=== PATIENT | male | born 1950 | race Caucasian/White ===

== ENCOUNTER 2018-04-28 21:09 | Outpatient (REF) | payer OTHER, SELFPAY ==
[2018-04-28 22:22] LABS: ALT 66 U/L (12-78); AST 39 U/L (15-37); Albumin 4.3 g/dL (3.4-5.0); Alkaline Phosphatase 57 U/L (46-116); Anion Gap 8.4 mmol/L (3-11); BUN 9 mg/dL (7-18); Bilirubin, Total 0.7 mg/dL (0.2-1.0); CO2 27.6 mmol/L (21.0-32.0); Calcium 8.4 mg/dL (8.5-10.1); Chloride 102 mmol/L (98-107); Cholesterol 178 mg/dL (50-200); Glucose 98 mg/dL (70-100); HDL Cholesterol 81 mg/dL (40-60); LDL CHOLESTEROL 88 mg/dL (<100); Potassium 3.8 mmol/L (3.5-5.1); Sodium 138 mmol/L (136-145); Total Protein 7.5 g/dL (6.4-8.2); Triglyceride 56 mg/dL (30-150)
== END 2018-04-28 21:10 ==
LOC: NCHCN 21:09
PROVIDERS: PCP Family Medicine; Visit Provider Nurse Practitioner Family
DX: I49.9 Cardiac arrhythmia, unspecified (principal); I10 Essential (primary) hypertension; E78.5 Hyperlipidemia, unspecified
CPT/HCPCS: 80053; 80061; 83721

== ENCOUNTER 2018-05-11 18:32 | Outpatient (REF) | payer OTHER, SELFPAY ==
[2018-05-11 22:38] LABS: Anion Gap 5.7 mmol/L (3-11); BUN 14 mg/dL (7-18); CO2 29.3 mmol/L (21.0-32.0); CREATININE 0.77 mg/dL (0.70-1.30); Chloride 102 mmol/L (98-107); Glucose 101 mg/dL (70-100); Potassium 4.4 mmol/L (3.5-5.1); Sodium 137 mmol/L (136-145)
== END 2018-05-11 18:52 ==
LOC: NCHCN 18:32
PROVIDERS: PCP Family Medicine; Visit Provider Nurse Practitioner Family
DX: I10 Essential (primary) hypertension (principal)
CPT/HCPCS: 80048

== ENCOUNTER 2018-05-26 09:39 | Outpatient (REF) | payer OTHER, SELFPAY ==
[2018-05-26 21:31] LABS: HCT 40.8 % (40.0-50.0); HGB 13.5 g/dL (13.5-17.5); Mean Corp. HGB Concentration 33.1 g/dL (32.0-36.0); Mean Corpuscular Hemoglobin 33.8 pg (27.0-33.0); Mean Corpuscular Volume 102.3 fL (80-95); Mean Platelet Volume 10.2 fL (8.0-11.0); Platelet Count 225 x1000/uL (130-400); RBC 3.99 m/cumm (4.50-6.00); RBC Distribution Width 11.2 % (11.8-14.1); White Blood Cell Count 3.93 k/cumm (4.4-10.8)
[2018-05-26 21:39] LABS: Iron 188 ug/dL (50-175); Total Iron Binding Capacity 315 ug/dL (250-450); Transferrin Sat 60 % (20-55)
[2018-05-26 21:52] LABS: Ferritin 696 ng/mL (8-388)
[2018-05-26 23:29] LABS: Prothrombin Time 9.9 sec (9.3-10.8)
[2018-05-28 09:14] LABS: Hepatitis C Ab w Rflx HCV PCR Negative (NEGAT)
[2018-05-28 11:05] LABS: HBs Antibody, Quant <3.1 mIU/mL; Hepatitis B Surface Ab Negative; Hepatitis B Surface Ag Negative (NEGAT)
== END 2018-05-26 09:59 ==
LOC: NCHCN 09:39
PROVIDERS: PCP Family Medicine; Visit Provider Nurse Practitioner Family
DX: K76.89 Other specified diseases of liver (principal); R79.89 Other specified abnormal findings of blood chemistry
CPT/HCPCS: 85027; 86706; 86803; 87340; 82728; 83540; 83550; 85610

== ENCOUNTER 2019-03-07 17:04 | Outpatient (REF) | payer MEDICARE, BC, SELFPAY ==
[2019-03-07 21:48] LABS: TSH (W/Ref FT4) 3.59 uIU/mL (0.358-3.74)
== END 2019-03-07 17:24 ==
LOC: NCHCN 17:04
PROVIDERS: PCP Family Medicine; Visit Provider Family Medicine
DX: E01.0 Iodine-deficiency related diffuse (endemic) goiter (principal); R42 Dizziness and giddiness; Z80.8 Family history of malignant neoplasm of other organs or systems
CPT/HCPCS: 84443

== ENCOUNTER 2019-04-11 14:39 | Outpatient (REF) | payer MEDICARE, BC, SELFPAY ==
[2019-04-11 22:11] LABS: Folate 10.6 ng/mL (8.6-20.0); Vitamin B12 238 pg/mL (193-986)
== END 2019-04-11 14:59 ==
LOC: NCHCN 14:39
PROVIDERS: PCP Family Medicine; Visit Provider Family Medicine
DX: D53.9 Nutritional anemia, unspecified (principal); R79.89 Other specified abnormal findings of blood chemistry; R94.5 Abnormal results of liver function studies; J39.2 Other diseases of pharynx; E01.0 Iodine-deficiency related diffuse (endemic) goiter; M25.559 Pain in unspecified hip; Z80.8 Family history of malignant neoplasm of other organs or systems
CPT/HCPCS: 82607; 82746

== ENCOUNTER 2019-10-07 13:42 | Outpatient (REF) | payer MEDICARE, BC, SELFPAY ==
[2019-10-07 21:17] LABS: Abs Immature Grans 0.01 k/cumm (0.0-0.09); Absolute Basophil Count 0.03 k/cumm (0.0-0.2); Absolute Eosinophil Count 0.22 k/cumm (0.0-0.7); Absolute Lymphocyte Count 1.47 k/cumm (1.2-3.4); Absolute Monocyte Count 0.74 k/cumm (0.11-0.7); Absolute Neutrophil Count 5.07 k/cumm (1.2-6.7); Basophils % 0.4; Eosinophils % 2.9; HCT 41.1 % (40.0-50.0); HGB 13.8 g/dL (13.5-17.5); Immature Grans % 0.1 %; Lymphocytes % 19.5; Mean Corp. HGB Concentration 33.6 g/dL (32.0-36.0); Mean Corpuscular Hemoglobin 34.4 pg (27.0-33.0); Mean Corpuscular Volume 102.5 fL (80-95); Mean Platelet Volume 10.2 fL (8.0-11.0); Monocytes % 9.8; Neutrophils % 67.3; Platelet Count 222 x1000/uL (130-400); RBC 4.01 m/cumm (4.50-6.00); RBC Distribution Width 11.8 % (11.8-14.1); White Blood Cell Count 7.54 k/cumm (4.4-10.8)
[2019-10-07 21:35] LABS: ALT 54 U/L (16-63); AST 30 U/L (15-37); Anion Gap 7.4 mmol/L (3-11); BUN 15 mg/dL (7-18); CO2 30.6 mmol/L (21.0-32.0); CREATININE 1.19 mg/dL (0.70-1.30); Calcium 8.8 mg/dL (8.5-10.1); Chloride 104 mmol/L (98-107); FREE T4 1.01 ng/dL (0.76-1.46); Glucose 95 mg/dL (74-106); Potassium 3.9 mmol/L (3.5-5.1); Sodium 142 mmol/L (136-145); TSH 1.32 uIU/mL (0.36-3.74)
[2019-10-10 10:29] LABS: PSA, Screening <0.1 ng/mL (0.0-4.5)
[2019-10-10 11:05] LABS: Thyroperoxidase Antibody 29 U/mL (<=60)
== END 2019-10-07 14:02 ==
LOC: NCHCN 13:42
PROVIDERS: PCP Family Medicine; Visit Provider Family Medicine
DX: E01.0 Iodine-deficiency related diffuse (endemic) goiter (principal); R79.89 Other specified abnormal findings of blood chemistry; Z12.5 Encounter for screening for malignant neoplasm of prostate; Z85.46 Personal history of malignant neoplasm of prostate; D53.9 Nutritional anemia, unspecified; I10 Essential (primary) hypertension
CPT/HCPCS: 80048; 84153; 84439; 84443; 84450; 84460; 85025; 86376

== ENCOUNTER 2020-02-21 13:50 | Outpatient (REF) | payer MEDICARE, BC, SELFPAY ==
[2020-02-21 21:44] LABS: HGB 13.1 g/dL (13.5-17.5); Mean Corp. HGB Concentration 33.6 g/dL (32.0-36.0); Mean Corpuscular Hemoglobin 34.3 pg (27.0-33.0); Mean Corpuscular Volume 102.1 fL (80-95); Mean Platelet Volume 10.9 fL (8.0-11.0); Platelet Count 167 x1000/uL (130-400); RBC 3.82 m/cumm (4.50-6.00); RBC Distribution Width 11.8 % (11.8-14.1); White Blood Cell Count 5.76 k/cumm (4.4-10.8)
[2020-02-21 22:08] LABS: Hemoglobin A1C 5.5 % (3.8-5.6)
[2020-02-21 22:31] LABS: ALT 50 U/L (16-63); AST 27 U/L (15-37); Albumin 4.5 g/dL (3.4-5.0); Alkaline Phosphatase 44 U/L (46-116); Anion Gap 9.3 mmol/L (3-11); BUN 15 mg/dL (7-18); Bilirubin, Total 0.7 mg/dL (0.2-1.0); CO2 28.7 mmol/L (21.0-32.0); CREATININE 0.82 mg/dL (0.70-1.30); Calcium 8.8 mg/dL (8.5-10.1); Calculated LDL 90 mg/dL (<100); Chloride 104 mmol/L (98-107); Cholesterol 175 mg/dL (<200); Ferritin 633 ng/mL (26-388); Folate > 20.0 ng/mL (8.6-20.0); Glucose 110 mg/dL (74-106); HDL Cholesterol 62 mg/dL (40-60); Potassium 3.6 mmol/L (3.5-5.1); Sodium 142 mmol/L (136-145); Total Protein 7.2 g/dL (6.4-8.2); Triglyceride 118 mg/dL (<150); Vitamin B12 548 pg/mL (193-986)
[2020-02-24 11:30] LABS: ALT 47 U/L (16-63); AST 28 U/L (15-37); Albumin 4.5 g/dL (3.4-5.0); Alkaline Phosphatase 46 U/L (46-116); Bilirubin, Direct 0.16 mg/dL (0.00-0.20); Bilirubin, Total 0.7 mg/dL (0.2-1.0); Total Protein 7.2 g/dL (6.4-8.2)
== END 2020-02-21 14:10 ==
LOC: NCHCN 13:50
PROVIDERS: PCP Family Medicine; Visit Provider Nurse Practitioner Family
DX: D53.9 Nutritional anemia, unspecified (principal); E83.110 Hereditary hemochromatosis; I10 Essential (primary) hypertension; R10.11 Right upper quadrant pain; E78.5 Hyperlipidemia, unspecified; R73.09 Other abnormal glucose; K70.9 Alcoholic liver disease, unspecified; M25.552 Pain in left hip
CPT/HCPCS: 80053; 80061; 80076; 85027; 82607; 82728; 82746; 83036

== ENCOUNTER 2020-03-08 14:16 | Outpatient (REF) | payer MEDICARE, BC, SELFPAY | END 2020-03-08 14:36 | LOC: NCHCN 14:16 | PROVIDERS: PCP Family Medicine; Visit Provider Nurse Practitioner Family | DX: R79.89 Other specified abnormal findings of blood chemistry (principal); E83.110 Hereditary hemochromatosis | CPT/HCPCS: 85045 ==

== ENCOUNTER 2021-03-25 18:33 | Outpatient (REF) | payer MEDICARE, SELFPAY ==
[2021-03-25 21:25] LABS: Hemoglobin A1C 5.5 % (<5.7)
[2021-03-25 22:05] LABS: ALT 114 U/L (16-63); AST 54 U/L (15-37); Alkaline Phosphatase 52 U/L (46-116); BUN 8 mg/dL (7-18); Bilirubin, Total 0.5 mg/dL (0.2-1.0); CREATININE 0.8 mg/dL (0.70-1.30); Calcium 9.1 mg/dL (8.5-10.1); Calculated LDL 91 mg/dL (<100); Chloride 105 mmol/L (98-107); Cholesterol 166 mg/dL (<200); Glucose 115 mg/dL (74-106); HDL Cholesterol 64 mg/dL (40-60); Sodium 142 mmol/L (136-145); Total Protein 7.2 g/dL (6.4-8.2); Triglyceride 58 mg/dL (<150)
[2021-03-25 22:10] LABS: Vitamin B12 > 2000 pg/mL (193-986)
[2021-03-26 19:04] LABS: PSA, Screening <0.1 ng/mL (0.0-4.5)
[2021-03-27 11:29] LABS: HBs Antibody, Quant <3.1 mIU/mL (See Note); Hepatitis B Surface Ab Negative (See Note)
== END 2021-03-25 18:34 | disposition home or self-care (01) ==
LOC: NCHCN 18:33
PROVIDERS: PCP Family Medicine; Visit Provider Nurse Practitioner Family
DX: Z00.00 Encounter for general adult medical examination without abnormal findings (principal); Z51.81 Encounter for therapeutic drug level monitoring; E78.5 Hyperlipidemia, unspecified; I10 Essential (primary) hypertension; K21.9 Gastro-esophageal reflux disease without esophagitis; Z85.46 Personal history of malignant neoplasm of prostate
CPT/HCPCS: 80053; 80061; 84153; 86706; 82607; 83036; 83735

== ENCOUNTER 2021-05-01 11:09 | Outpatient (REF) | payer MEDICARE, SELFPAY ==
[2021-05-01 14:03] LABS: ALT 64 U/L (16-63); AST 25 U/L (15-37); Albumin 4.2 g/dL (3.4-5.0); Alkaline Phosphatase 58 U/L (46-116); Anion Gap 8.4 mmol/L (3-11); BUN 10 mg/dL (7-18); Bilirubin, Total 0.6 mg/dL (0.2-1.0); CO2 29.6 mmol/L (21.0-32.0); CREATININE 0.9 mg/dL (0.70-1.30); Calcium 8.8 mg/dL (8.5-10.1); Chloride 104 mmol/L (98-107); Glucose 116 mg/dL (74-106); Potassium 3.8 mmol/L (3.5-5.1); Sodium 142 mmol/L (136-145); Total Protein 7.4 g/dL (6.4-8.2)
== END 2021-05-01 11:10 | disposition home or self-care (01) ==
LOC: NCHCN 11:09
PROVIDERS: PCP Family Medicine; Visit Provider Nurse Practitioner Family
DX: R79.89 Other specified abnormal findings of blood chemistry (principal)
CPT/HCPCS: 80053

== ENCOUNTER 2022-04-02 14:34 | Outpatient (REF) | payer MEDICARE, SELFPAY ==
[2022-04-02 15:26] LABS: HGB 13.2 g/dL (13.5-17.5); MCH 34.2 pg (27.0-33.0); MCHC 33.8 % (32.0-36.0); MCV 101 fL (80-95); Platelet Count 199 10^3/uL (130-400); RBC 3.86 10^6/uL (4.36-5.78); RDW 11.8 % (11.8-14.1); RDW-SD 43.7 fL; WBC 6.61 10^3/uL (4.4-10.8)
[2022-04-02 16:04] LABS: ALT 42 U/L (16-63); AST 24 U/L (15-37); Albumin 4.3 g/dL (3.4-5.0); Alkaline Phosphatase 52 U/L (46-116); Anion Gap 10.6 mmol/L (3-11); BUN 11 mg/dL (7-18); Bilirubin, Total 0.5 mg/dL (0.2-1.0); CO2 27.4 mmol/L (21.0-32.0); CREATININE 0.9 mg/dL (0.70-1.30); Calculated LDL 117 mg/dL (<100); Chloride 103 mmol/L (98-107); Cholesterol 210 mg/dL (<200); Glucose 108 mg/dL (74-106); HDL Cholesterol 79 mg/dL (40-60); Potassium 3.7 mmol/L (3.5-5.1); Sodium 141 mmol/L (136-145); Total Protein 7.5 g/dL (6.4-8.2); Triglyceride 74 mg/dL (<150); Vitamin B12 1094 pg/mL (193-986)
[2022-04-02 17:04] LABS: Hemoglobin A1C 5.3 % (<5.7)
[2022-04-02 22:44] LABS: PSA, Screening <0.1 ng/mL (<=4.5)
== END 2022-04-02 14:35 | disposition home or self-care (01) ==
LOC: NCHCN 14:34
PROVIDERS: PCP Family Medicine; Visit Provider Nurse Practitioner Family
DX: E78.5 Hyperlipidemia, unspecified (principal); E83.110 Hereditary hemochromatosis; Z12.5 Encounter for screening for malignant neoplasm of prostate; Z00.00 Encounter for general adult medical examination without abnormal findings; I10 Essential (primary) hypertension; R79.89 Other specified abnormal findings of blood chemistry; K70.9 Alcoholic liver disease, unspecified; D53.8 Other specified nutritional anemias; E66.9 Obesity, unspecified
CPT/HCPCS: 80053; 80061; 84153; 85027; 82607; 83036

== ENCOUNTER 2022-12-23 15:26 | Outpatient (REF) | payer MEDICARE, SELFPAY ==
[2022-12-23 14:51] LABS: HCT 38.2 % (40.0-50.0); HGB 13.2 g/dL (13.5-17.5); MCH 34.9 pg (27.0-33.0); MCHC 34.6 % (32.0-36.0); MCV 101 fL (80-95); MPV 9.6 fL (8.0-11.0); Platelet Count 199 10^3/uL (130-400); RBC 3.78 10^6/uL (4.36-5.78); RDW 11.4 % (11.8-14.1); RDW-SD 42.4 fL; WBC 4.93 10^3/uL (4.4-10.8)
[2022-12-23 15:03] LABS: ALT 80 U/L (16-63); AST 48 U/L (15-37); Alkaline Phosphatase 54 U/L (46-116); Anion Gap 4.5 mmol/L (3-11); BUN 12 mg/dL (7-18); Bilirubin, Total 0.6 mg/dL (0.2-1.0); CO2 28.5 mmol/L (21.0-32.0); Calcium 8.9 mg/dL (8.5-10.1); Chloride 103 mmol/L (98-107); Estimated GFR 80.97 (mL/min/1.73m2); Glucose 110 mg/dL (74-106); Potassium 3.9 mmol/L (3.5-5.1); Sodium 136 mmol/L (136-145); Total Protein 7.6 g/dL (6.4-8.2)
== END 2022-12-23 15:27 | disposition home or self-care (01) ==
LOC: NCHCN 15:26
PROVIDERS: PCP Family Medicine; Visit Provider Family Medicine
DX: D64.9 Anemia, unspecified (principal); I10 Essential (primary) hypertension
CPT/HCPCS: 80053; 85027

== ENCOUNTER 2023-05-06 10:15 | Outpatient (REF) | payer MEDICARE, SELFPAY ==
[2023-05-06 17:41] LABS: BUN 11 mg/dL (7-18); CREATININE 0.9 mg/dL (0.70-1.30); Estimated GFR 91.88 (mL/min/1.73m2)
== END 2023-05-06 10:16 | disposition home or self-care (01) ==
LOC: NCHCN 10:15
PROVIDERS: PCP Family Medicine; Visit Provider Family Medicine
DX: G44.229 Chronic tension-type headache, not intractable (principal); Z01.812 Encounter for preprocedural laboratory examination
CPT/HCPCS: 84520; 82565

== ENCOUNTER 2023-05-26 10:30 | Outpatient (REF) | payer MEDICARE, SELFPAY ==
[2023-05-26 16:30] LABS: Abs Immature Grans 0.02 10^3/uL (0.0-0.06); Absolute Basophil Count 0.04 10^3/uL (0.0-0.2); Absolute Eosinophil Count 0.28 10^3/uL (0.0-0.7); Absolute Lymphocyte Count 1.83 10^3/uL (1.2-3.4); Absolute Monocyte Count 0.67 10^3/uL (0.1-0.8); Absolute Neutrophil Count 2.59 10^3/uL (1.2-6.7); Basophils % 0.7; Eosinophils % 5.2; HGB 12.4 g/dL (13.5-17.5); Immature Grans % 0.4; Lymphocytes % 33.7; MCH 34.8 pg (27.0-33.0); MCHC 33.5 % (32.0-36.0); MCV 104 fL (80-95); MPV 10.2 fL (8.0-11.0); Monocytes % 12.3; Neutrophils % 47.7; Platelet Count 211 10^3/uL (130-400); RBC 3.56 10^6/uL (4.36-5.78); RDW 11.1 % (11.8-14.1); RDW-SD 42.7 fL; WBC 5.43 10^3/uL (4.4-10.8)
[2023-05-26 17:26] LABS: ALT 58 U/L (16-63); AST 32 U/L (15-37); Alkaline Phosphatase 51 U/L (46-116); BUN 12 mg/dL (7-18); Bilirubin, Total 0.4 mg/dL (0.2-1.0); CREATININE 0.9 mg/dL (0.70-1.30); Calcium 9.6 mg/dL (8.5-10.1); Calculated LDL 97 mg/dL (<100); Chloride 102 mmol/L (98-107); Cholesterol 175 mg/dL (<200); Estimated GFR 91.88 (mL/min/1.73m2); Glucose 105 mg/dL (74-106); HDL Cholesterol 69 mg/dL (40-60); Potassium 4.3 mmol/L (3.5-5.1); Sodium 139 mmol/L (136-145); TSH (W/Ref FT4) 4.44 uIU/mL (0.36-3.74); Total Protein 7.4 g/dL (6.4-8.2); Triglyceride 49 mg/dL (<150)
[2023-05-26 17:56] LABS: FREE T4 0.94 ng/dL (0.76-1.46)
== END 2023-05-26 10:31 | disposition home or self-care (01) ==
LOC: NCHCN 10:30
PROVIDERS: PCP Family Medicine; Visit Provider Family Medicine
DX: E78.5 Hyperlipidemia, unspecified (principal); D64.9 Anemia, unspecified; I10 Essential (primary) hypertension; E01.0 Iodine-deficiency related diffuse (endemic) goiter; R79.89 Other specified abnormal findings of blood chemistry
CPT/HCPCS: 80053; 80061; 84439; 84443; 85025

== ENCOUNTER 2023-06-02 15:38 | Outpatient (REF) | payer MEDICARE, SELFPAY ==
[2023-06-02 21:42] LABS: Iron 197 ug/dL (65-175); Total Iron Binding Capacity 307 ug/dL (250-450); Transferrin Sat 64 % (20-55)
[2023-06-02 22:18] LABS: Folate 13.2 ng/mL (8.6-20.0); Vitamin B12 1200 pg/mL (193-986)
[2023-06-02 22:33] LABS: Ferritin 1378 ng/mL (26-388)
== END 2023-06-02 15:39 | disposition home or self-care (01) ==
LOC: NCHCN 15:38
PROVIDERS: PCP Family Medicine; Visit Provider Family Medicine
DX: D64.9 Anemia, unspecified (principal); D53.8 Other specified nutritional anemias
CPT/HCPCS: 82607; 82728; 82746; 83540; 83550